=== PATIENT | male | born 1945 | race Hispanic/Latino ===

== ENCOUNTER 2017-11-04 17:04 | Emergency (ER) | payer OTHER ==
[~2017-11-04 17:04] MED LIST: CIPR-245 PO; DIAZ5TAB4 PO; ENAL20TA PO; METF10004 PO; SIMV40TA59 PO
[2017-11-04] MEDS ORDERED: ACETAMINOPHEN 325 MG TAB ONE (17:32)
== END 2017-11-04 19:35 | disposition home or self-care (01) ==
LOC: EDH 17:04
DX: S00.83XA Contusion of other part of head, initial encounter (principal); E11.9 Type 2 diabetes mellitus without complications; I10 Essential (primary) hypertension; W18.39XA Other fall on same level, initial encounter; Y93.01 Activity, walking, marching and hiking; Y92.89 Other specified places as the place of occurrence of the external cause; Y99.8 Other external cause status
CPT/HCPCS: 70450; 72125

== ENCOUNTER → 2017-12-13 | Outpatient (CLI) | payer OTHER | END | disposition home or self-care (01) | LOC: SHCH 10:43 | PROVIDERS: ATTEND Internal Medicine Cardiovascular Disease | DX: I73.9 Peripheral vascular disease, unspecified (principal) | CPT/HCPCS: 93925 ==

== ENCOUNTER → 2019-02-04 | Outpatient (CLI) | payer OTHER ==
[~2019-02-04] MED LIST changes: +ASPI-1005 PO; -CIPR-245 PO; +FURO40TA5 PO; +METF-446 PO; -METF10004 PO; +ROSU20TA30 PO; -SIMV40TA59 PO
== END | disposition home or self-care (01) ==
LOC: SHCH 11:40
PROVIDERS: ATTEND Internal Medicine Cardiovascular Disease
DX: I08.0 Rheumatic disorders of both mitral and aortic valves (principal); I25.10 Atherosclerotic heart disease of native coronary artery without angina pectoris; I25.5 Ischemic cardiomyopathy
CPT/HCPCS: 93306

== ENCOUNTER 2019-04-04 08:56 | Observation (INO) | payer OTHER ==
[2019-04-01 11:34] LABS: BASOPHILS % (AUTO) 0.9 % (0.0-5.0); EOSINOPHILS % (AUTO) 4.1 % (0.0-8.0); HEMATOCRIT 44.6 % (42-54); LYMPHOCYTES % (AUTO) 25.9 % (21.0-51.0); MEAN CORPUSCULAR HEMOGLOBIN 31.4 pg (27.0-33.0); MEAN CORPUSCULAR HGB CONC 33.4 g/dL (32.0-36.0); MONOCYTES % (AUTO) 7.1 % (3.0-13.0); PLATELET COUNT (AUTO) 137 K/uL (130-400); RED BLOOD CELL COUNT(AUTO) 4.75 MIL/uL (4.50-6.20); RED CELL DISTRIBUTION WIDTH 14.3 % (11.0-15.5); WHITE BLOOD COUNT (AUTO) 7.7 K/uL (4.8-10.8)
[2019-04-01 11:37] VITALS: BP 108/61
[2019-04-01 11:43] LABS: POTASSIUM 3.9 mmol/L (3.5-5.1)
[2019-04-01 11:45] LABS: PARTIAL THROMBOPLASTIN TIME 29.2 SEC (26.3-35.5); PROTHROMBIN TIME 10.5 SEC (9.6-11.6)
[~2019-04-04] VITALS: Ht 167.6 cm; Wt 89.8 kg
[2019-04-04] VITALS (10 sets, daily range): BP systolic 95–121; BP diastolic 52–74
[~2019-04-04 08:56] MED LIST changes: +CARV3.12 PO; +CEFAZOLIN SODIUM 1 GM VIAL IVP ONE; +CLOP75TA32 PO; -DIAZ5TAB4 PO; -ROSU20TA30 PO; +ROSU20TA31 PO; +SODIUM CHLORIDE 0.9% 1000ML 1,000 ML IV SCH
[2019-04-04] MEDS ORDERED: CEFAZOLIN SODIUM 1 GM VIAL ONE (14:25)
[2019-04-04] MEDS ORDERED: MIDAZOLAM HCL 1 MG/ML 2ML VIAL ONE ×3 (14:25→16:22)
[2019-04-04] MEDS ORDERED: MEPERIDINE-PF 50 MG/ML SYG ONE ×2 (14:25→15:35)
[2019-04-04] MEDS ORDERED: BUPIVACAINE/PF 0.25% 50ML VIAL IJ ONE (14:26)
[2019-04-04] MEDS ORDERED: LIDOCAINE HCL 1% MDV 50ML VIAL ONE (14:26)
[2019-04-04] MEDS ORDERED: IODIXANOL 320 MG/ML 100 ML VIAL ONE (14:26)
--- NOTE | 2019-04-04 14:34 | NUR ---
PT TSF TO AIR AND WATER TESTER VIA BED WITH [employer]STA GILES
[2019-04-04] MEDS ORDERED: MEPERIDINE-PF 25 MG/ML SYG ONE (16:21)
[2019-04-04] MEDS ORDERED: THROMBIN-JMI 5000 UNIT/VIAL TP ONE (16:24)
[2019-04-04] MEDS ORDERED: TRAMADOL HCL 50 MG TABLET PO PRN (17:00)
--- NOTE | 2019-04-04 17:10 | NUR ---
STATUS PT RECEIVED FROM SCIENTOLOGIST VIA BED. S/P BiV ICD PLACEMENT BY DR CHOI. LT UPPER CHEST INCISION PRESSURE DSG. SLING TO LT ARM. PT INFORMED OF ARM PRECAUTIONS. SLING TO LT ARM. DENIES INCISIONAL PAIN @ THIS TIME. TELE" PACED 70s. A/O X 3. NO SOB. NO DISTRESS NOTED. DENIES CHEST PAIN OR DISCOMFORT. PT INFORMED TO MAINTAIN BEDREST X 4 HRS. ORIENTED TO RM. INSTRUCTED TO CALL FOR ASSISTANCE. CALL GAY W/IN REACH. FAMILY @ BEDSIDE.
--- NOTE | 2019-04-04 20:35 | NUR ---
Received phone call from NISA Garrett regarding pt S/P BIV AICD placed.Informed that pt needs to be seen per .She said she will come together with Dr. Concepcion
[2019-04-04] MEDS ORDERED: CARVEDILOL 3.125 MG TABLET PO SCH (21:00)
[2019-04-04] MEDS ORDERED: ATORVASTATIN CALCIUM 40 MG TABLET PO SCH (21:00)
[2019-04-04] MEDS ORDERED: FUROSEMIDE 40 MG TABLET PO SCH (21:00)
--- NOTE | 2019-04-04 22:21 | NUR ---
Paged BAGGING MACHINE OPERATOR Tami at this time regarding pt needs to be seen as per as part of outgoing nurse report.Pending to call back.
--- NOTE | 2019-04-05 | NUR ---
NISA Garrett came and notiifed that pt. is in room 225
[2019-04-05 04:00] VITALS: BP 113/63
[2019-04-05 07:30] VITALS: BP 119/72
--- NOTE | 2019-04-05 07:45 | NUR ---
AM ASSESSMENT PT SITTING IN BED. FAMILY @ BEDSIDE. A/O X 3. NO SOB. NO DISTRESS NOTED. DENIES CHEST PAIN OR DISCOMFORT. DENIES INCISIONAL PAIN. LT UPPER CHEST PRESSURE DSG REMOVED. TELFA & OPSITE TO INCISION SITE DRY & INTACT. NO BLEEDING, NO HEMATOMA NOTED. SLING TO LT ARM. ARM PRECAUTIONS REINFORCED, STATES UNDERSTANDING. TELE: AV PACED 70s. DENIES N/V AND/OR DIARRHEA. UP W/ASSISTANCE. CALL GAY W/IN REACH.
--- NOTE | 2019-04-05 08:10 | NUR ---
AM MEDICATIONS PT TOOK OWN AM MEDICATIONS FROM HIS OWN MEDICATION SUPPLY.
[2019-04-05] MEDS ORDERED: CLOPIDOGREL BISULFATE 75 MG TAB PO SCH (09:00)
[2019-04-05] MEDS ORDERED: ASPIRIN 81MG TAB.CHEW PO SCH (09:00)
[2019-04-05] MEDS ORDERED: ENALAPRIL MALEATE 10 MG TABLET PO SCH (09:00)
--- NOTE | 2019-04-05 11:15 | NUR ---
DISCHARGE VERBAL & WRITTEN DISCHARGE INSTRUCTIONS REVIEWED & GIVEN TO PT & FAMILY. QUESTIONS ENCOURAGED & CLARIFIED. PROPER CARE & ACTIVITY AFTER BIV ICD PLACEMENT REVIEWED. ARM PRECAUTIONS REINFORCED. PT TO CONTINUE HOME MEDICATIONS. NO NEW PRESCRIBED MEDICATIONS. TELE PRABHJOT REMOVED. IV DISCONTINUED. PT WOULD LIKE TO HAVE LUNCH PRIOR TO GOING HOME. WILL NOTIFY STAFF WHEN READY TO BE TAKEN TO PRIVATE VEHICLE.
[2019-04-05] MEDS ORDERED: METFORMIN HCL 500 MG TAB.SR.24H PO SCH (12:00)
--- NOTE | 2019-04-05 12:00 | NUR ---
DISCHARGE PT TAKEN TO PRIVATE VEHICLE VIA WC BY Keanu CHO PCP, ACCOMPANIED BY FAMILY. NO DISTRESS NOTED.
== END 2019-04-05 12:00 | disposition home or self-care (01) ==
LOC: DAH 08:56 → DAHIP 08:57 → DAH 08:57 → 2DH 17:26
PROVIDERS: ADMIT Internal Medicine; ATTEND Internal Medicine
DX: I11.0 Hypertensive heart disease with heart failure (principal); I50.22 Chronic systolic (congestive) heart failure; E11.9 Type 2 diabetes mellitus without complications; E78.5 Hyperlipidemia, unspecified; I45.10 Unspecified right bundle-branch block; I25.5 Ischemic cardiomyopathy; Z79.899 Other long term (current) drug therapy
CPT/HCPCS: 33225; 33249; 36415; 71045; 80048; 82948 ×3; 85025; 85610; 85730; A4606; C1769; C1882; C1895 ×2; C1900; G0378 ×19; J0690; J2175 ×3; J2250 ×3; J3490 ×3; J7030; Q9967; 99156; 99157

== ENCOUNTER → 2019-11-12 | Outpatient (CLI) | payer OTHER ==
[~2019-11-12] MED LIST changes: -CEFAZOLIN SODIUM 1 GM VIAL IVP ONE; -SODIUM CHLORIDE 0.9% 1000ML 1,000 ML IV SCH
== END | disposition home or self-care (01) ==
LOC: SHCH 08:24
PROVIDERS: ATTEND Internal Medicine Cardiovascular Disease
DX: I10 Essential (primary) hypertension (principal); I25.5 Ischemic cardiomyopathy
CPT/HCPCS: 93306

== ENCOUNTER → 2020-11-23 | Outpatient (CLI) | payer OTHER ==
[~2020-11-23] MED LIST changes: -ENAL20TA PO; +ENAL20TA18 PO
== END | disposition home or self-care (01) ==
LOC: RAH 14:39
PROVIDERS: ATTEND Family Medicine
DX: M47.816 Spondylosis without myelopathy or radiculopathy, lumbar region (principal); M25.78 Osteophyte, vertebrae; M51.36 Other intervertebral disc degeneration, lumbar region; I70.0 Atherosclerosis of aorta
CPT/HCPCS: 72100; 76770

== ENCOUNTER 2021-01-14 15:42 | Emergency (ER) | payer OTHER ==
[2021-01-14] MEDS ORDERED: ALTEPLASE 100 MG VIAL IVP ONE (15:43)
[2021-01-14] MEDS ORDERED: IOHEXOL-350 75 ML VIAL IV ONE (15:50)
[2021-01-14] MEDS ORDERED: IOHEXOL-350 50ML VIAL IV ONE (15:50)
[2021-01-14 15:59] LABS: BASOPHILS % (AUTO) 0.8 % (0.0-5.0); EOSINOPHILS % (AUTO) 2.6 % (0.0-8.0); HEMATOCRIT 42.8 % (42-54); LYMPHOCYTES % (AUTO) 17.7 % (21.0-51.0); MEAN CORPUSCULAR HEMOGLOBIN 30.9 pg (27.0-33.0); MEAN CORPUSCULAR VOLUME 96.4 fL (79-99); MONOCYTES % (AUTO) 10.1 % (3.0-13.0); NEUTROPHILS % (AUTO) 68.5 % (40.0-77.0); PLATELET COUNT (AUTO) 127 K/uL (130-400); RED BLOOD CELL COUNT(AUTO) 4.44 MIL/uL (4.50-6.20); RED CELL DISTRIBUTION WIDTH 16.5 % (11.0-15.5); WHITE BLOOD COUNT (AUTO) 7.4 K/uL (4.8-10.8)
[2021-01-14 16:16] LABS: INR 1.12 (0.85-1.15); PROTHROMBIN TIME 12.1 SEC (9.6-11.6)
[2021-01-14 16:17] LABS: PARTIAL THROMBOPLASTIN TIME 28.6 SEC (26.3-35.5)
[2021-01-14 16:20] LABS: ALBUMIN 2.8 g/dL (3.5-5.0); BILIRUBIN,TOTAL 0.9 mg/dL (0.2-1.0); CREATININE 1.6 mg/dL (0.5-1.5); TOTAL PROTEIN, SERUM 7.7 g/dL (6.0-8.3)
[2021-01-14 16:21] LABS: POTASSIUM 2.6 mmol/L (3.5-5.1)
[2021-01-14] MEDS ORDERED: LIDOCAINE HCL-MPF 1% 2ML VIAL ONE (16:41)
[2021-01-14] MEDS ORDERED: POTASSIUM CHLORIDE 20MEQ/100ML 100 ML IV ONE (16:41)
[2021-01-14] MEDS ORDERED: SODIUM CHLORIDE 0.9% 50 ML IV ONE (17:13)
== END 2021-01-14 18:55 | disposition short-term general hospital (02) ==
LOC: EDH 15:42
DX: I63.59 Cerebral infarction due to unspecified occlusion or stenosis of other cerebral artery (principal); E87.6 Hypokalemia; D69.6 Thrombocytopenia, unspecified; J90 Pleural effusion, not elsewhere classified; G81.94 Hemiplegia, unspecified affecting left nondominant side; I12.9 Hypertensive chronic kidney disease with stage 1 through stage 4 chronic kidney disease, or unspecified chronic kidney disease; E11.22 Type 2 diabetes mellitus with diabetic chronic kidney disease; N18.9 Chronic kidney disease, unspecified; I63.9 Cerebral infarction, unspecified
CPT/HCPCS: 36415; 37195; 51702; 70450; 70496; 70498; 71045; 80053; 82550; 82948; 84484; 85025; 85610; 85730; 93005; 96365; 96366; 99285; J2997; J3480; J3490; Q9967 ×2; 96375